=== PATIENT | female | born 1980 | race Caucasian/White ===

== ENCOUNTER 2017-12-18 15:08 | Emergency (ER) | payer OTHER ==
[~2017-12-18] VITALS: Ht 170.2 cm; Wt 69.4 kg
[2017-12-18 15:14] VITALS: BP 104/63
--- NOTE | 2017-12-18 15:20 | NUR ---
PT TAKEN TO BED 12
--- NOTE | 2017-12-18 15:22 | NUR ---
CONFIRMED WITH PHARMACY, SPOKE WITH BRITTNEY, WE HAVE ONE DOSE LEFT OF RABIES VACCINATION.
[2017-12-18] MEDS ORDERED: cefTRIAXone 1,000 MG in LIDOCAINE 1% ***ER ONLY *** 2.1 ML IM ONE (15:55)
[2017-12-18] MEDS ORDERED: RABIES VACCINE 2.5 IU VIAL IMVAC ONE (15:55)
[2017-12-18] MEDS ORDERED: cefTRIAXone 1,000 MG VIAL ONE (16:06)
[2017-12-18] MEDS ORDERED: LIDOCAINE MPF 1% - **ER/OR** 5 ML ONE (16:25)
[2017-12-18 16:51] VITALS: BP 105/54
--- NOTE | 2017-12-18 16:52 | NUR ---
Patient discharged with v/s stable. Written and verbal after care instructions given and explained. Patient verbalized understanding. Ambulatory with steady gait. All questions addressed prior to discharge. Advised to follow up with PMD.
== END 2017-12-18 16:52 | disposition home or self-care (01) ==
LOC: MED 15:08
DX: S61.031A Puncture wound without foreign body of right thumb without damage to nail, initial encounter (principal); Z88.2 Allergy status to sulfonamides; W55.01XA Bitten by cat, initial encounter; Y93.89 Activity, other specified; Y99.8 Other external cause status; Y92.89 Other specified places as the place of occurrence of the external cause
CPT/HCPCS: 90471; 90472; 90675; 90715; 96372; 99285; J0696; J2001